=== PATIENT | female | born 1960 | race Asian ===

== ENCOUNTER 2022-05-23 15:42 | Observation (INO) | payer OTHER ==
[~2022-05-23] VITALS: Ht 142.2 cm; Wt 56.7 kg
[2022-05-23] MEDS ORDERED: LABETALOL 20 MG/4 ML VIAL IVP ONE (15:55)
--- NOTE | 2022-05-23 15:59 | NUR ---
Blood work and SARS/Flu swab given to crime laboratory analyst.
[2022-05-23 16:05] VITALS: BP 176/94
[2022-05-23 16:13] LABS: BASOPHILS # (AUTO) 0.1 K/uL (0.00-0.22); BASOPHILS % (AUTO) 0.9 % (0.0-2.0); EOSINOPHILS # (AUTO) 0.2 K/uL (0-0.4); EOSINOPHILS % (AUTO) 1.6 % (0.0-4.0); HEMATOCRIT 41.3 % (36-48); HEMOGLOBIN 13.4 g/dL (12.0-16.0); LYMPHOCYTES # (AUTO) 4.4 K/uL (2.5-16.5); LYMPHOCYTES % (AUTO) 36.3 % (20.5-51.1); MEAN CORPUSCULAR HEMOGLOBIN 29 pg (27-31); MEAN CORPUSCULAR HGB CONC 32 g/dL (33-37); MONOCYTES % (AUTO) 8.6 % (1.7-9.3); NEUTROPHILS # (AUTO) 6.4 K/uL (1.8-7.7); NEUTROPHILS % (AUTO) 52.6 % (42.2-75.2); PLATELET COUNT (AUTO) 182 K/uL (140-450); RED BLOOD CELL COUNT(AUTO) 4.64 MIL/uL (4.20-5.40); RED CELL DISTRIBUTION WIDTH 13.3 % (11.6-13.7); WHITE BLOOD COUNT (AUTO) 12.1 K/uL (4.8-10.8)
[2022-05-23] MEDS ORDERED: FLUORESCEIN OPTH STRIP 1 MG OP ONE (16:20)
[2022-05-23] MEDS ORDERED: TETRACAINE HCL/PF 0.5% OPTH 4 ML BTL OP ONE (16:20)
[2022-05-23 16:36] LABS: ALBUMIN 4.5 g/dL (3.4-5.0); ASPARTATE AMINOTRANSFERASE 34 U/L (15-37); CARBON DIOXIDE 23.6 mmol/L (21-32); CHLORIDE 99 mmol/L (98-107); CREATININE 0.8 mg/dL (0.6-1.3); GFR ARICAN-AMERICAN 93 mL/min (>90); POTASSIUM 3.6 mmol/L (3.5-5.1); SODIUM SERUM 136 mmol/L (136-145); TOTAL BILIRUBIN 0.7 mg/dL (0.0-1.0); UREA NITROGEN, BLOOD 11 mg/dL (7-18)
[2022-05-23 16:45] LABS: GLUCOSE 131 mg/dL (74-106)
[2022-05-23] MEDS ORDERED: NACL 0.9% 500 ML IV ONE (17:05)
[2022-05-23] MEDS: BENZONATATE 100 MG CAPLF PO PRN (17:38)
--- NOTE | 2022-05-23 17:39 | NUR ---
Pt taken to CT via john
[2022-05-23] MEDS ORDERED: MECLIZINE 25 MG TAB PO ONE (18:20)
[2022-05-23] MEDS ORDERED: ACETAMINOPHEN EXTRA STRENGTH 500 MG TAB PO ONE (18:20)
--- NOTE | 2022-05-23 18:41 | NUR ---
Pt vomited meclizine and tylenol. Removed additional doses from pyxis.
--- NOTE | 2022-05-23 19:48 | NUR ---
Pt ambulated to restroom gait steady
--- NOTE | 2022-05-23 20:05 | NUR ---
Urine collected and sent to lab
[2022-05-23 20:18] LABS: APPEARANCE,URINE CLEAR (CLEAR); BILIRUBIN,URINE NEGATIVE (NEGATIVE); BLOOD, URINE NEGATIVE (NEGATIVE); COLOR,URINE YELLOW (YELLOW); LEUKOCYTE ESTERASE ,URINE 1+ (NEGATIVE); NITRITE, URINE NEGATIVE (NEGATIVE); PH,URINE 7.5 (5.0-9.0); UGLUCOSE NEGATIVE (NEGATIVE)
--- NOTE | 2022-05-23 21:13 | NUR ---
BELONGINGS LIST DONE.
[2022-05-23 21:17] LABS: RBC,URINE NONE SEEN /HPF (0-5); TRICHOMONAS,URINE None Seen /HPF (None Seen); YEAST,URINE None Seen /HPF (None Seen)
[2022-05-23] MEDS ORDERED: MORPHINE SULFATE 4 MG/ML SYR IVP PRN (21:40)
[2022-05-23] MEDS ORDERED: ONDANSETRON 4 MG/2 ML VIAL IVP PRN (21:40)
[2022-05-23] MEDS ORDERED: HYDROcodone/APAP 5/325 MG 1 TAB TAB PO PRN (21:40)
[2022-05-23] MEDS ORDERED: POTASSIUM CHLORIDE 10 MEQ TABER PO PRN (21:40)
[2022-05-23] MEDS ORDERED: ACETAMINOPHEN 325 MG TAB PO PRN (21:40)
[2022-05-23] MEDS ORDERED: MAG SULF 2000 MG/WATER PREMIX 50 ML IV PRN (21:40)
[2022-05-23] MEDS ORDERED: MAGNESIUM OXIDE 400 MG TAB PO PRN (21:40)
[2022-05-23] MEDS ORDERED: KCL 20 MEQ IN 100 mL PREMIX 200 ML IV PRN (21:40)
[2022-05-23] MEDS ORDERED: hydrALAZINE 20 MG/ML VIAL IVP PRN (21:45)
--- NOTE | 2022-05-23 22:11 | NUR ---
Report given to Elbert REID
[2022-05-23 22:20] VITALS: BP 148/86
[2022-05-24 04:00] VITALS: BP 142/80
[2022-05-24 06:12] LABS: BASOPHILS % (AUTO) 0.3 % (0.0-2.0); EOSINOPHILS # (AUTO) 0.2 K/uL (0-0.4); EOSINOPHILS % (AUTO) 2.1 % (0.0-4.0); HEMATOCRIT 41.4 % (36-48); HEMOGLOBIN 13.3 g/dL (12.0-16.0); LYMPHOCYTES # (AUTO) 3.9 K/uL (2.5-16.5); MEAN CORPUSCULAR HEMOGLOBIN 29 pg (27-31); MEAN CORPUSCULAR HGB CONC 32 g/dL (33-37); MEAN CORPUSCULAR VOLUME 90.3 fL (80-94); MONOCYTES # (AUTO) 0.8 K/uL (0.8-1.0); MONOCYTES % (AUTO) 9.1 % (1.7-9.3); NEUTROPHILS # (AUTO) 3.9 K/uL (1.8-7.7); NEUTROPHILS % (AUTO) 44.5 % (42.2-75.2); PLATELET COUNT (AUTO) 178 K/uL (140-450); RED BLOOD CELL COUNT(AUTO) 4.58 MIL/uL (4.20-5.40); RED CELL DISTRIBUTION WIDTH 13.4 % (11.6-13.7); WHITE BLOOD COUNT (AUTO) 8.8 K/uL (4.8-10.8)
[2022-05-24 06:39] LABS: ALBUMIN 4.2 g/dL (3.4-5.0); ANION GAP 12.7 (8-16); CARBON DIOXIDE 29.2 mmol/L (21-32); CREATININE 0.9 mg/dL (0.6-1.3); MAGNESIUM 2.1 mg/dL (1.8-2.4); POTASSIUM 3.9 mmol/L (3.5-5.1)
--- NOTE | 2022-05-24 07:00 | NUR ---
PT IS STABLE. NO ACUTE EVENTS THROUGHOUT THE NIGHT.ALL NEEDS ATTENDED. NO S/SX OF DISTRESS AT THIS TIME. NO COMPLAINS OF PAIN. ALL PRECAUTIONS IN PLACE. CALL LIGHT WITHIN REACH. WILL ENDORSE TO DAY SHIFT RN.
--- NOTE | 2022-05-24 07:43 | NUR ---
NURSES NOTE PATIENT RECEIVED AT BED SIDE , A/OX4 , VSS , SINUS ON MONITOR ,ON ROOM AIR , ON CARDIAC DIET NO NAUSEA OR VOMITING AMBULATORY , CONTINENT X2, ON IV FLUID N/S 0.9% 80CC/H , SKIN INTACT , SAFETY PROACTION ON PLACE , SIDE RAILS UP X3 BED IN LOWER POSITION , CALL LIGHT WITHIN REACH , NO COMPLAIN AT THIS TIME , STILL UNDER OBSERVE .
[2022-05-24 08:47] VITALS: BP 146/83
--- NOTE | 2022-05-24 09:22 | NUR ---
PATIENT HAS BEEN SCREENED AND CATEGORIZED MODERATE NUTRITION RISK. PATIENT WILL BE SEEN WITHIN 3-5 DAYS OF ADMISSION. 05/23/22-05/28/[address]
[2022-05-24] MEDS: BENZONATATE 100 MG CAPLF PO PRN (11:47)
[2022-05-24 12:14] VITALS: BP 137/75
--- NOTE | 2022-05-24 12:38 | NUR ---
NURSES NOTE PATIENT A/OX4 , COMPLAIN OF SORE THROAT , DR PEREA , COUGH MEDS GIVEN NO OTHER COMPLAIN AT THIS TIME , WILL CONTINUE OBSERVE .
[2022-05-24] MEDS ORDERED: HYDR-1098 PO (12:48)
[2022-05-24] MEDS ORDERED: CEPH-588 PO (12:48)
[2022-05-24 13:45] VITALS: BP 137/75
--- NOTE | 2022-05-24 14:11 | NUR ---
I CALLED HER4 SON MESERET ON NUMBER [phone] TO INFORMED HIM HIS MOM SHE HAS DISCHARGE ORDER TO COME TO PIC UP HIS MOM HE SAID HE WILL COME WITHIN 20MINTS .
--- NOTE | 2022-05-24 14:46 | NUR ---
NURSES NOTE PATIENT DISCHARGE HOME A/OX4 , VSS , NO COMPLAIN , ASSISTED TO LOBBY BY WHEEL CHAIR BY [facility]ICATION RECONCILED FOR HER SON , DISCHARGE PACKET EXPLAIN FOR HER SONE MONITOR , IV AND ARM BAND REMOVED , PICKED UP BY HER SON .
== END 2022-05-24 14:45 | disposition home or self-care (01) ==
LOC: MED 15:42 → MMU 21:36 → MTU 21:36 → MMU 21:56
PROVIDERS: ADMIT Hospitalist; ATTEND Hospitalist
DX: I16.0 Hypertensive urgency (principal); Z20.822 Contact with and (suspected) exposure to COVID-19; I16.1 Hypertensive emergency; D72.829 Elevated white blood cell count, unspecified; H53.8 Other visual disturbances; Z79.899 Other long term (current) drug therapy
CPT/HCPCS: 36415; 70450; 70496; 70498; 71045; 71250; 80053; 81001; 83735; 84484; 85025; 85379; 87081; 87086; 87426; 87804; 96374; 99285; G0378; J3490; J8597; Q0092